=== PATIENT | female | born 1985 | race Hispanic/Latino ===

== ENCOUNTER 2022-01-24 13:57 | Outpatient (CLI) | payer OTHER | END 2022-01-24 13:58 | disposition home or self-care (01) | LOC: BICULT 13:57 | PROVIDERS: ATTEND Nurse Practitioner Women's Health | DX: R10.2 Pelvic and perineal pain (principal); N83.202 Unspecified ovarian cyst, left side | CPT/HCPCS: 76856; 93976 ==